=== PATIENT | male | born 1970 | race Caucasian/White ===

== ENCOUNTER 2018-12-12 11:29 | Outpatient (CLI) | payer OTHER ==
--- NOTE | 2018-12-12 12:53 | RAD ---
TWO VIEWS RIGHT HUMERUS: Comparison: None. History: Right arm pain. FINDINGS: Two views of the right humerus shows no evidence of acute fracture or dislocation. No degenerative ch anges are seen in the shoulder or elbow. There is a remote healed right clavicle fracture. The visual ized bony thorax is unremarkable. IMPRESSION: No evidence of acute osseous abnormality. POS: [facility]
== END 2018-12-12 11:30 | disposition home or self-care (01) ==
LOC: RAD-FRANK 11:29
PROVIDERS: ATTEND Nurse Practitioner Family
DX: M79.601 Pain in right arm (principal)

== ENCOUNTER 2019-04-08 18:00 | Observation (INO) ==
[2019-04-08] MEDS ORDERED: Lorazepam 2 MG/ML VIAL ONE (18:30)
[2019-04-08 18:48] LABS: Bilirubin Negative (Negative); Blood, Urine Negative (Negative); Clarity CLEAR (Clear); Glucose, Urine (Dipstick) 100 mg/dL (Negative); Leukocyte Negative (Negative); Nitrite Negative (Negative); Protein, Urine (Dipstick) Trace mg/dL (Neg-Trace); Urobilinogen 0.2 mg/dL (0.2-1.0)
--- NOTE | 2019-04-08 18:49 | CT ---
CT Brain WO Con History: Altered mental status Comparison: None. Findings: No acute hemorrhage or infarct. No midline shift or mass effect. Ventricular size and extra -axial CSF spaces are normal. Calvarium is intact. Paranasal sinuses and mastoids are clear. Impression: No acute intracranial abnormality.
--- NOTE | 2019-04-08 18:57 | RAD ---
XR Chest 1 View Portable History: Altered mental status Comparison: None Findings: Left basilar airspace opacity. Right lung is clear. No pneumothorax. No significant effusio n. No acute osseous abnormality. Old right midclavicular fracture. Impression: Left lower lobe pneumonia. Follow-up after treatment recommended.
[2019-04-08 18:59] LABS: Acetaminophen Less than 6.0 mcg/mL (10.0-30.0); Alcohol Less than 10 mg/dL (Less than 10); Salicylate Less than 8.0 mg/dL (15.0-30.0)
[2019-04-08 19:00] LABS: Amphetamine Not Detected (NotDetected); Barbiturates Screen Not Detected (NotDetected); Benzodiazepine Screen Not Detected (NotDetected); Cocaine Metabolite Screen Not Detected (NotDetected); Medtox Control Line Valid? VALID (VALID); Medtox Reader # READER 1; Methadone Not Detected (NotDetected); Methamphetamine Not Detected (NotDetected); Opiate Screen Not Detected (NotDetected); Oxycodone Screen Not Detected (NotDetected); Phencyclidine (PCP) Not Detected (NotDetected); THC/Cannabinoid Screen Not Detected (NotDetected); Tricyclic Screen Detected (NotDetected)
[2019-04-08] MEDS ORDERED: lamoTRIgine 25 MG TAB PO SCH (21:15)
--- NOTE | 2019-04-08 21:23 | PDOC.FPRHP ---
- History of Present Illness Chief Complaint: Seizure History of Present Illness: This is a 48 yo male iwht a known hx of seizure disorder, anxiety, and depression who presents to the ED with a cc of malaise. Pt is poor historian following ativan and postictal state. The ER nurse and guard provided the majority of the history. Pt was previously seen today for his malaise and was subsequently sent back to shelter. In the parking lot, pt had a witnessed seizure. Nursing denies loss of bowel or bladder function. Pt denies cough, fever, or headache. Per guard, pt has been out of lamotrigine since 04/06/19. ED Course: Vanc, zosyn, lamotrigine 50 mg, NS 2L, ativan 1mg - Allergies/Adverse Reactions Allergies Allergy/AdvReac Type Severity Reaction Status Date / Time No Known Drug Allergies Allergy Verified 04/08/19 23:54 - Home Medications Medication Instructions Recorded Confirmed Type Gabapentin 100 mg PO DAILY 04/08/19 04/08/19 History Polyethylene Glycol 3350 [Glycolax] 17 gm PO DAILY 04/08/19 04/08/19 History hydrOXYzine HCl [Hydroxyzine HCl] 50 mg PO Q6HR PRN 04/08/19 04/08/19 History lamoTRIgine 50 mg PO ASDIR 04/08/19 04/09/19 History - History PMHx: Seizure disorder, anxiety, depression PSHx: none FHx: None contributory Social: Previous tobacco, cocaine, marijuana, methamphetamine, opiate abuse - Review of Systems ROS unobtainable: due to mental status (See HPI for pertinent ROS) - Vital signs BP: 137/90 HR: 98 RR: 18 Tmax: 98.8 Pox: 95% on ra Wt: 54 kg - Physical Exam Constitutional: other (Oriented to person, somnulent but easy to arouse. Pt falling asleep throughout discussion) HEENT: normocephalic and atraumatic, PERRLA, EOMI, MMM Neck: supple, FROM, trachea midline, no JVD Chest: no-tender to palpation, no lesions Heart: RRR, normal S1/S2, no murmurs/rubs/gallops, pulses present Lungs: no respiratory distress, good air movement, other (crackles on mid to lower left lobes) Abdomen: soft, non-tender, bowel sounds present, no masses/distention Musculoskeletal: normal structure, normal tone, ROM grossly normal Neurological: other (Unable to fully obtain 2/2 mental status. Pt appearred to have no motor deficit,) Skin: capillary refill <2 seconds Heme/Lymphatic: no unusual bruising or bleeding Psychiatric: normal mood and affect, intact recent and remote memory FMR H&P: Results - Labs Result Diagrams: 04/09/19 05:25 04/09/19 05:25 Lab results: Lactic Acid 1.3 mmol/L (0.5-2.2) 04/08/19 20:38 Urine Ketones Negative mg/dL (Negative) 04/08/19 18:10 Urine Blood Negative (Negative) 04/08/19 18:10 Urine Nitrite Negative (Negative) 04/08/19 18:10 Ur Leukocyte Esterase Negative (Negative) 04/08/19 18:10 - Radiology Interpretation CT scan - head Status: report reviewed by me (negative) Chest x-ray Status: report reviewed by me ( Left basilar airspace opacity, likely LLL PNA) FMR H&P: A/P - Problem List (1) Seizure Current Visit: Yes Status: Acute Code(s): R56.9 - UNSPECIFIED CONVULSIONS (2) LLL pneumonia Current Visit: Yes Status: Acute Code(s): J18.1 - LOBAR PNEUMONIA, UNSPECIFIED ORGANISM - Plan This is a 48 yo male with a pmh of a known seizure disorder Myoclonic seizure -Admit to stroke obs -PRN ativan -Restart home seizure meds -Prolactin 23.15 -UDS negative -CT head negative Left lower lobe pneumonia -S/p Vanc and zosyn, continuing Azithromycin and rocephin -Negative Strep pneumo and legionella -Likely discharge on azithromycin Longterm, tattoos, risky behavior -Pending HIV, hepatitis B/C and RPR testing Code: Full Prophylaxis: None Family: Guard at bedside Fluids: 75ml/hr Diet: NPO until he passes bedside swallow, then regular diet Disposition: DC in 1-2 days PCP: [facility] FMR H&P: Upper Level - Pertinent history 48M, incarcerated, presents for evaluation of weakness x3 days. History is unreliable as patient has received ativan. Symptom associated with fatigue, sleepiness, feeling like he "ran 100 miles". grain weigher says he does not know patient baseline, but says that he has been out of medication for a while, including for seizure. Imaging pertinent for normal CT brain, CXR with supposed LLL pneumonia. WBC elevated at 13 with 85% neutrophil. Sodium 135, prolactin mildly elevated at 23, normal range 3-19. Toxicology screen positive for TCA. In ER, he has received 1 gm vancomycin 3.375 g zosyn, lamotrigine 50 mg , normal saline 2 L and ativan 1 mg. Gen: Sleepy, arousable by sternal rub but quickly falls asleep again HEENT: Normocephalic, vision and hearing grossly intact, midline trachea CV: RRR with no m/g/r Resp: CTA bilat, no retraction, no rhonchi, crackles, wheezing heard. Diminished breath sound throughout, possibly due to somnolent patient GI: Soft, normoactive, no guarding Derm: No obvious rash/lesion seen Neuro: Noted occasional involuntary twitching of hands. Patient somnolent. GCS of 11, eye opening to sound, localize pain, speech confused words. Tone normal besides involuntary twitching, which continues even when patient is awake. Unable to do full exam due to ativan sedation.\\ 1. Sepsis secondary to community acquired pnuemonia - Pneumonia on xray. Pulse of 110, WBC 13. Meets sepsis criteria. - Likely deesclate abx to ceftriaxone and azithromycin. - Further lab with urine strep and legionella antigen, procalcitonin. - Duoneb, supplmental o2 as needed. Steroid if resp status worsen. 2. Mild hyponatremia - Borderline Na of 135. Unlikely to be cause of twitching or other possible neurologic changes, but will continue to monitor with BMP 3. Leukocytosis with left shift - Likely due to pneumonia - Treat pneumonia, will continue trending. 4. Hyperglycemia - 151 random glucose. Unclear when patient last ate but is also currently ill. - Will continue monitor, advise follow up in [facility]pc. May consider A1c. 5. Prolactinemia - Mildly elevated. Can be elevated in stress condition such as pneumonia - If patient has seizure like activity, can remeasure. 6. Positive TCA in urine drug screen - Likely due to hydroxyzine, patient's home medication. 7. Possible seizure like activity - There was concern patient had seizure like activity, due to twitching note on exam and some altered mentation - Unlikely due to seizure as patient was able to say complete words while twitching went on. - Will start pneumonia treatment, reevaluate. Possible due to patient's pneumonia at this time. - Plan Date/Time: 04/08/192122 I, [Paul Tom], have evaluated this patient and agree with findings/plan as outlined by machine learning intern resident. Pertinent changes/additions are listed here. Addendum - Attending - Attending Attestation Date/Time: 04/08/192239 I personally evaluated the patient and discussed the management with Dr. Coronel /Vaishali. I agree with the History, Examination, Assessment and Plan documented above with any addition or exceptions noted below. Patient with history of seizure disorder off his home lamictal here with breakthrough seizure. There is also some concern about bacterial pneumonia. History limited currently as patient sedate from Ativan to break his seizure. No focal deficits. Labs show mild leukocytosis and elevated prolactin. CXR does not show convincing infiltrate. Will obtain PCT, place on seizure precautions, and restart Lamictal. Further mgmt per clinical course.
[2019-04-08] MEDS ORDERED: hydrOXYzine 25 MG TAB PO PRN (21:53)
[2019-04-08] MEDS ORDERED: Ondansetron PF 4 MG/2 ML Vial IVP PRN (23:48)
[2019-04-08] MEDS ORDERED: Ondansetron ODT 4 MG TAB PO PRN (23:48)
[2019-04-08] MEDS ORDERED: Acetaminophen 650 MG Suppository PR PRN (23:48)
[2019-04-08] MEDS ORDERED: Lorazepam 2 MG/ML VIAL SLOW IVP PRN (23:48)
[2019-04-09 00:06] VITALS: BMI 24.7
[2019-04-09 00:15] LABS: Legionella Urinary Ag Negative (Negative)
[2019-04-09 00:22] LABS: Strep pneumo Urine Ag NEGATIVE (NEGATIVE)
[2019-04-09 00:30] LABS: Syphilis Antibody Nonreactive (Nonreactive); Syphilis Antibody Index 0.03 S/CO (<1.00 Non-Reactive)
[2019-04-09 00:43] LABS: HBSAB Concentration 1.04 mIU/mL; HBSAg Index 0.26 S/CO (0-0.99); HIV (1/2) Antibody/Antigen Non-Reactive (NonReactive); HIV 1/2 INDEX 0.13 S/CO (<1.00); Hep B Surf AB Non-Reactive (NonReactive); Hep B Surf Ag Non-Reactive S/CO (NonReactive); Hep C IgG Ab Non-Reactive (NonReactive); Hep C Index 0.03 S/CO (0-0.79)
[2019-04-09] MEDS: Azithromycin 500 MG in Sodium Chloride 0.9% 250 ML 250 ML IVPB SCH ×2 (01:15→23:32)
[2019-04-09] MEDS: Sodium Chloride 0.9% 1,000 ML IV SCH ×2 (01:15→15:05)
[2019-04-09] MEDS: cefTRIAXone\\ROCEPHIN 1 GM in Sodium Chloride 0.9% 100 ML IVPB SCH (02:34)
[2019-04-09 05:41] LABS: #Lymphocytes 0.9 thou/uL (1.20-3.40); #Monocytes 0.8 thou/uL (0.11-0.59); #Neutrophils 10.4 thou/uL (1.40-6.50); %Basophils 0.1 % (0.0-1.0); %Eosinophils 0.2 % (0.0-10.0); %Lymphocytes 7.5 % (21.0-51.0); %Monocytes 6.5 % (0.0-10.0); %Neutrophils 85.8 % (42.0-75.0); Hemoglobin 13.7 g/dL (14.0-18.0); Mean Corpuscular HGB CONC 33.5 g/dL (32.0-36.0); Mean Corpuscular Hemoglobin 31.7 pg (27.0-31.0); Mean Corpuscular Volume 94.8 fL (78.0-98.0); Mean Platelet Volume 6.8 fL (7.4-10.4); Platelet Count 239 thou/uL (130-400); RBC Distribution Width 11.7 % (11.5-14.5); Red Blood Cell (RBC) Count 4.31 mill/uL (4.70-6.10); White Blood Cell (WBC) Count 12.1 thou/uL (4.8-10.8)
[2019-04-09 05:58] LABS: Anion Gap 13 mmol/L (10-20); BUN (Urea Nitrogen) 10 mg/dL (8.9-20.6); Calc. Creatinine Clearance 91 mL/min (70-130); Calcium 8.2 mg/dL (7.8-10.44); Carbon Dioxide 18 mmol/L (22-29); Chloride 115 mmol/L (98-107); Estimated GFR-MDRD 85; Glucose 100 mg/dL (70-105); Potassium 3.8 mmol/L (3.5-5.1); Sodium 142 mmol/L (136-145)
--- NOTE | 2019-04-09 06:16 | PDOC.FM ---
- Subjective Subjective: Patient states he still feels "in the clouds" today, and a bit confused. Otherwise he is feeling well. Attempted discussing resuscitation status, patient makes unrelated comments about driving and is unable to follow the conversation. - Objective Vital Signs & Weight: Vital Signs (12 hours) Temp Pulse Resp BP Pulse Ox 04/09/19 03:48 97.8 F 99 20 124/80 92 L 04/08/19 23:29 98.1 F 76 20 127/78 93 L Weight Weight 67.268 kg I&O: 04/07/19 04/08/19 04/09/19 06:59 06:59 06:59 Intake Total 250 Output Total 2800 Balance -2550 Result Diagrams: 04/09/19 05:25 04/09/19 05:25 Phys Exam - Physical Examination Constitutional: NAD trembling on exam Unable to follow logical conversation, confused HEENT: PERRLA, moist MMs, sclera anicteric, oral pharynx no lesions Neck: supple, full ROM Respiratory: no wheezing, clear to auscultation bilateral Cardiovascular: RRR, no significant murmur sinus tach in low 100s overnight Gastrointestinal: soft, no distention Musculoskeletal: no edema, pulses present Neurological: non-focal, moves all 4 limbs CN 2-12 grossly intact. Patient has resting tremor bilaterally AO to self, hospital (but not city/name of hospital), states April 08, 2019 Skin: no rash, normal turgor, cap refill <2 seconds Dx/Plan (1) LLL pneumonia Code(s): J18.1 - LOBAR PNEUMONIA, UNSPECIFIED ORGANISM Status: Acute (2) Seizure Code(s): R56.9 - UNSPECIFIED CONVULSIONS Status: Acute (3) Hx of mixed drug abuse Code(s): F19.11 - OTHER PSYCHOACTIVE SUBSTANCE ABUSE, IN REMISSION Status: Chronic - Plan Plan: This is a 48 yo male with a pmh of a known seizure disorder Myoclonic seizure -suspect combination of running out of seizure medication a couple days ago, concurrent pneumonia likely decreased seizure threshhold -Prolactin 23.15. UDS negative, CT head negative. Restart home seizure medications (lamotrigine) -PRN ativan Altered mental status -suspect 2/2 seizure -on stroke obs -At baseline, patient AOx3 and not confused, per guard at bedside Left lower lobe pneumonia -S/p Vanc and zosyn, continuing Azithromycin and rocephin -Negative uyrine Strep pneumo and legionella Long-Term, tattoos, risky behavior w/ hx multi drug abuse - HIV, hepatitis B/C and RPR negative Code: Full, patient does not have decision making capacity at this time Prophylaxis: None Family: Guard at bedside Fluids: 75ml/hr Diet: NPO until he passes bedside swallow, then regular diet Disposition: DC in 1-2 days PCP: [facility] Addendum - Attending - Attending Attestation Date/Time: 04/09/19 0794 I personally evaluated the patient and discussed the management with Dr. Beltran. I agree with the History, Examination, Assessment and Plan documented above with any addition or exceptions noted below. Awaiting bedside swallow eval. Continue antibiotics for pneumonia. Will monitor pt's tremors as they are reportedly improved from this morning. No new seizure activity. Pt is still confused.
[2019-04-09] MEDS: lamoTRIgine 25 MG TAB PO SCH (08:43)
[2019-04-09] MEDS: Gabapentin 100 MG CAP PO SCH (08:43)
[2019-04-09] MEDS: Polyethylene Glycol 3350 17 GM Packet PO SCH (08:44)
[2019-04-10] MEDS: Acetaminophen 325 MG TAB PO PRN ×2 (00:59→08:40)
[2019-04-10] MEDS: cefTRIAXone\\ROCEPHIN 1 GM in Sodium Chloride 0.9% 100 ML IVPB SCH (00:59)
[2019-04-10 05:29] LABS: #Eosinphils 0.1 thou/uL (0.0-0.7); #Lymphocytes 1.9 thou/uL (1.20-3.40); #Monocytes 0.8 thou/uL (0.11-0.59); #Neutrophils 9.2 thou/uL (1.40-6.50); %Basophils 0.1 % (0.0-1.0); %Eosinophils 0.9 % (0.0-10.0); %Lymphocytes 15.8 % (21.0-51.0); %Monocytes 6.8 % (0.0-10.0); %Neutrophils 76.4 % (42.0-75.0); Hemoglobin 13.1 g/dL (14.0-18.0); Mean Corpuscular HGB CONC 33.5 g/dL (32.0-36.0); Mean Corpuscular Volume 95.5 fL (78.0-98.0); Mean Platelet Volume 6.8 fL (7.4-10.4); Platelet Count 231 thou/uL (130-400); RBC Distribution Width 11.8 % (11.5-14.5); Red Blood Cell (RBC) Count 4.08 mill/uL (4.70-6.10)
[2019-04-10] MEDS: Sodium Chloride 0.9% 1,000 ML IV SCH (06:06)
--- NOTE | 2019-04-10 07:42 | PDOC.FM ---
- Subjective Subjective: NAEO. Patient reports he is feeling much clearer this morning. Eating, drinking , voiding, stooling well. - Objective Vital Signs & Weight: Vital Signs (12 hours) Temp Pulse Resp BP Pulse Ox 04/10/19 03:41 98 F 85 16 133/84 94 L 04/09/19 23:46 99.9 F H 90 16 115/78 94 L 04/09/19 20:00 99.3 F 92 18 121/76 92 L Weight Weight 67.268 kg I&O: 04/09/19 04/10/19 04/11/19 06:59 06:59 06:59 Intake Total 825 2359 Output Total 5600 600 Balance -9375 1759 Result Diagrams: 04/10/19 04:18 04/09/19 05:25 Phys Exam - Physical Examination Constitutional: NAD More alert and calmer this morning, answers questions appropriately. HEENT: PERRLA, moist MMs, oral pharynx no lesions Neck: no nodes, supple crackles at bases bilat, L greater than right. Mild crackles LEEANNA Cardiovascular: RRR, no significant murmur Gastrointestinal: soft, no distention, positive bowel sounds Musculoskeletal: no edema, pulses present Neurological: non-focal, moves all 4 limbs CN 2-12 intact, strength 5/5 BUE and BLE Psychiatric: normal affect, A&O x 3 (AO to person and place, wrong date of month but correct month and year) Skin: no rash, normal turgor, cap refill <2 seconds Dx/Plan (1) LLL pneumonia Code(s): J18.1 - LOBAR PNEUMONIA, UNSPECIFIED ORGANISM Status: Acute (2) Seizure Code(s): R56.9 - UNSPECIFIED CONVULSIONS Status: Acute (3) Hx of mixed drug abuse Code(s): F19.11 - OTHER PSYCHOACTIVE SUBSTANCE ABUSE, IN REMISSION Status: Chronic - Plan Plan: This is a 48 yo male with a pmh of a known seizure disorder Myoclonic seizure -suspect combination of running out of seizure medication a couple days ago, concurrent pneumonia likely decreased seizure threshhold -Prolactin 23.15. UDS positive for tricyclics only, CT head negative. Restart home seizure medications (lamotrigine) -PRN ativan Altered mental status, resolved -suspect 2/2 seizure -Patient is now back to baseline Left lower lobe pneumonia -S/p Vanc and zosyn, continuing Azithromycin and rocephin -Negative urine Strep pneumo and legionella -discharge to home on omnicef and azithromycin Long Term, tattoos, risky behavior w/ hx multi drug abuse - HIV, hepatitis B/C and RPR negative Code: DNAR, discussed at length with patient at bedside. Prophylaxis: None Family: Guard at bedside Diet: regular diet Disposition: Discharge back to senior living today PCP: [facility] Addendum - Attending - Attending Attestation Date/Time: 04/10/19 9221 I personally evaluated the patient and discussed the management with Dr. Beltran. I agree with the History, Examination, Assessment and Plan documented above with any addition or exceptions noted below.
[2019-04-10] MEDS: lamoTRIgine 25 MG TAB PO SCH (08:40)
[2019-04-10] MEDS: Gabapentin 100 MG CAP PO SCH (08:40)
[2019-04-10] MEDS: Polyethylene Glycol 3350 17 GM Packet PO SCH (08:40)
[2019-04-10 11:37] VITALS: BP 136/73; TEMP 97.9
--- NOTE | 2019-04-10 15:54 | DIS ---
DATE OF ADMISSION: 04/08/2019 DATE OF DISCHARGE: 04/10/2019 RESIDENT: Tori Beltran MD ADMITTING ATTENDING: Piyush Smith MD DISCHARGE ATTENDING: Phil George MD CONSULTS: None. PROCEDURES: Brain CT. Impression, no acute intracranial abnormality. Chest x-ray, left lower lobe pneumonia. PRIMARY DIAGNOSES: 1. Myoclonic seizure. 2. Left lower lobe pneumonia. 3. Altered mental status secondary to seizure. SECONDARY DIAGNOSIS: None. DISCHARGE MEDICATIONS: 1. Azithromycin 250 mg p.o. daily for 4 days. 2. Omnicef 300 mg p.o. b.i.d. for 5 days. 3. Lamotrigine 50 mg p.o. daily. 4. Polyethylene glycol 17 g p.o. daily. 5. Gabapentin 100 mg p.o. daily. 6. Hydroxyzine 50 mg p.o. q.6 hours p.r.n. for agitation. DISCONTINUED MEDICATIONS: None. HISTORY OF PRESENT ILLNESS/HOSPITAL COURSE: This is a 48-year-old male with a known history of seizure disorder who presented to the ED with chief complaint of malaise. The patient was a poor historian following Ativan, in a postictal state. ER nursing guide provides majority of the history. The patient was previously seen that day for malaise and was subsequently sent back to senior living. However, in the parking lot, the patient had a witnessed seizure. Nursing denied loss of bowel or bladder function. The patient denied cough or headache. Per the chart, the patient had been out of lamotrigine for the past 2 days. In the ED, he received vanc, Zosyn, lamotrigine 50 mg, 2 L normal saline, and Ativan 1 mg. His prolactin was elevated to 23. CT head was negative. The patient was continued on his home lamotrigine. He did not have any further seizures during his stay. His mental status improved during his stay, and he was alert and oriented x3 on discharge, and answering questions appropriately. The patient was found to have left lower lobe pneumonia. On exam, the patient has had crackles to the left lobe. CXR showed LLL pneumonia. He was started on vancomycin and Zosyn in the ED and then continued on azithromycin and Rocephin during his stay. He had a negative urine, Strep pneumo as well as Legionella antigen. He was discharged to home on Omnicef and azithromycin. During his stay, the patient was tested for HIV, hepatitis B and C, RPR, which were all negative. DISPOSITION: Stable. DISCHARGE INSTRUCTIONS: 1. Location: [facility]. 2. Diet: Regular. 3. Activity: As tolerated. 4. Follow up with [facility] within 1 week. Also follow up with PCP at senior living within 1 week. Job ID: [id number] [email or web address]
--- NOTE | 2019-04-13 12:34 | EKG ---
Test Reason : Blood Pressure : / mmHG Vent. Rate : 142 BPM Atrial Rate : 142 BPM P-R Int : 172 ms QRS Dur : 104 ms QT Int : 240 ms P-R-T Axes : 079 097 -70 degrees QTc Int : 369 ms Sinus tachycardia Right atrial enlargement Rightward axis Pulmonary disease pattern Incomplete right bundle branch block Confirmed by RAISA PETTIT ([id number]), content editor BEAN HAMMOND ([id number]) on 04/13/2019 12:33:55 PM Referred By: Confirmed By:RAISA PETTIT
== END 2019-04-10 12:08 ==
LOC: ERS 18:00 → 2SE 23:45 → INTOOBSV 23:45
PROVIDERS: ADMIT Student in an Organized Health Care Education/Training Program; ATTEND Student in an Organized Health Care Education/Training Program
DX: G40.409 Other generalized epilepsy and epileptic syndromes, not intractable, without status epilepticus (principal); A41.9 Sepsis, unspecified organism; J18.1 Lobar pneumonia, unspecified organism; F41.9 Anxiety disorder, unspecified; F32.9 Major depressive disorder, single episode, unspecified; F14.11 Cocaine abuse, in remission; F12.11 Cannabis abuse, in remission; F15.11 Other stimulant abuse, in remission; F11.11 Opioid abuse, in remission; E87.1 Hypo-osmolality and hyponatremia; R73.9 Hyperglycemia, unspecified; E22.1 Hyperprolactinemia; Z87.891 Personal history of nicotine dependence; Z79.899 Other long term (current) drug therapy
CPT/HCPCS: 36415; 70450; 71045; 80048; 80306; 80307; 81003; 83605; 84145; 84146; 85025; 86706; 86780; 86803; 87040; 87086; 87340; 87389; 87899; 93005; 96361; 96366; 96367; 96375; G0378; J0456; J0696; J2060; J3490; J7050

== ENCOUNTER 2019-05-03 11:14 | Outpatient (CLI) | payer OTHER ==
--- NOTE | 2019-05-03 11:49 | RAD ---
PA AND LATERAL CHEST: HISTORY: Followup of pneumonia. COMPARISON: 04/08/2019 study. FINDINGS: Heart size and mediastinum are within normal limits. The lungs are clear of any infiltrative process . Left lower lobe infiltrate has resolved. IMPRESSION: No active intrathoracic disease. Resolution of the left lower lobe infiltrate. POS: [facility]
== END 2019-05-03 11:15 | disposition home or self-care (01) ==
LOC: RAD-FRANK 11:14
PROVIDERS: ATTEND Nurse Practitioner Family
DX: J18.1 Lobar pneumonia, unspecified organism (principal); R91.8 Other nonspecific abnormal finding of lung field
CPT/HCPCS: 71046

== ENCOUNTER 2023-08-23 07:33 | Day surgery (SDC) | payer OTHER ==
[2023-08-19 16:13] VITALS: BMI 20.7
[2023-08-23] MEDS ORDERED: PROPOFOL 200 MG/20 ML VIAL ONE (10:01)
== END 2023-08-23 11:23 | disposition home or self-care (01) ==
LOC: SDC 07:33
PROVIDERS: ATTEND Internal Medicine Gastroenterology
PROC: 0DBL8ZZ Excision of Transverse Colon, Via Natural or Artificial Opening Endoscopic (ICD-10-PCS; principal; 2023-08-23)
PROC: 0DBP8ZZ Excision of Rectum, Via Natural or Artificial Opening Endoscopic (ICD-10-PCS; principal; 2023-08-23)
DX: D12.3 Benign neoplasm of transverse colon (principal); K62.1 Rectal polyp; K64.8 Other hemorrhoids; Z86.010 Personal history of colon polyps
CPT/HCPCS: 88305; J2704